=== PATIENT | female | born 1955 | race Asian ===

== ENCOUNTER 2023-11-29 15:06 | Emergency (ER) | payer MEDICARE, OTHER ==
[~2023-11-29] VITALS: Ht 157.5 cm; Wt 65.9 kg
[2023-11-29 15:10] VITALS: TEMP 98.4
[2023-11-29] MEDS ORDERED: METF-1211 PO (15:17)
[2023-11-29] MEDS ORDERED: TELM1TAB42 PO (15:17)
[2023-11-29] MEDS ORDERED: MAGN400T57 PO (15:17)
[2023-11-29] MEDS ORDERED: METO25XL PO (15:17)
[2023-11-29] MEDS ORDERED: EMPA10TA3 PO (15:17)
[2023-11-29] MEDS ORDERED: ASPI-1450 PO (15:17)
[2023-11-29] MEDS ORDERED: ATOR40TA28 PO (15:17)
[2023-11-29 15:46] LABS: BASOPHILS % (AUTO) 0.8 % (0.0-2.0); EOSINOPHILS % (AUTO) 0.8 % (1.0-6.0); HEMATOCRIT 41.6 % (36-46); HEMOGLOBIN 14.1 g/dL (12.0-16.0); LYMPHOCYTES # (AUTO) 2.4 K/uL (1.0-4.8); LYMPHOCYTES % (AUTO) 28.7 % (22.0-44.0); MEAN CORPUSCULAR HEMOGLOBIN 30.7 pg (26.0-34.0); MEAN CORPUSCULAR HGB CONC 33.8 G/dL (31.0-37.0); MEAN CORPUSCULAR VOLUME 91 fL (80-100); MONOCYTES # (AUTO) 0.6 K/uL (0.1-1.0); MONOCYTES % (AUTO) 6.9 % (2.0-9.0); NEUTROPHILS # (AUTO) 5.2 K/uL (1.8-7.7); NEUTROPHILS % (AUTO) 62.8 % (40.0-70.0); PLATELET COUNT (AUTO) 275 K/uL (150-450); RED BLOOD CELL COUNT(AUTO) 4.58 MIL/uL (4.00-5.20); RED CELL DISTRIBUTION WIDTH 13.8 % (11.5-14.5); WHITE BLOOD COUNT (AUTO) 8.3 K/uL (4.5-11.0)
[2023-11-29 15:54] LABS: CALCIUM, TOTAL 9.3 mg/dL (8.8-10.5); CREATININE 1.04 mg/dL (0.60-1.30); POTASSIUM 3.9 mmol/L (3.5-5.1)
[2023-11-29 16:00] LABS: ALBUMIN 4.3 g/dL (3.4-5.0); BILIRUBIN,TOTAL 1.1 mg/dL (0.1-1.0); TOTAL PROTEIN, SERUM 8.9 g/dL (6.4-8.2)
[2023-11-29 16:01] LABS: TROPONIN I-HIGH SENSITIVITY 6 ng/L (<51)
[2023-11-29 20:31] VITALS: BP 132/68; PULSE 78; RESP 20
== END 2023-11-29 20:32 | disposition home or self-care (01) ==
LOC: EMS 15:06
DX: R00.2 Palpitations (principal); I10 Essential (primary) hypertension; E87.1 Hypo-osmolality and hyponatremia; E11.9 Type 2 diabetes mellitus without complications; E78.00 Pure hypercholesterolemia, unspecified
CPT/HCPCS: 71045; 80053; 84484; 85025; 93005; 99285; 36415-L1; 36415-TC

== ENCOUNTER 2024-03-12 03:35 | Emergency (ER) | payer MEDICARE ==
[~2024-03-12] VITALS: Ht 157.5 cm; Wt 68.2 kg
[~2024-03-12 03:35] MED LIST: ASPI-1450 PO; ATOR40TA28 PO; EMPA10TA3 PO; MAGN400T57 PO; METF-1211 PO; METO25XL PO; TELM1TAB42 PO
[2024-03-12 03:40] VITALS: TEMP 98.6
[2024-03-12 04:14] VITALS: BP 147/82; PULSE 68; RESP 18
[2024-03-12 05:17] LABS: TROPONIN I-HIGH SENSITIVITY 4 ng/L (<51)
[2024-03-12 07:21] LABS: GLUCOMETER DEV NAME(LOC) ER.7; GLUCOSE,POINT OF CARE 98 MG/DL (70-110)
== END 2024-03-12 05:49 | disposition home or self-care (01) ==
LOC: EMS 03:36
DX: I10 Essential (primary) hypertension (principal); R00.2 Palpitations; E11.9 Type 2 diabetes mellitus without complications
CPT/HCPCS: 82962; 84484; 93005; 99284

== ENCOUNTER 2024-03-12 10:14 | Emergency (ER) | payer MEDICARE ==
[~2024-03-12] VITALS: Ht 162.6 cm; Wt 70.5 kg
[2024-03-12 11:25] LABS: BASOPHILS % (AUTO) 0.4 % (0.0-2.0); EOSINOPHILS % (AUTO) 0.7 % (1.0-6.0); HEMATOCRIT 40.2 % (36-46); HEMOGLOBIN 13.3 g/dL (12.0-16.0); LYMPHOCYTES % (AUTO) 26.9 % (22.0-44.0); MEAN CORPUSCULAR HEMOGLOBIN 30.2 pg (26.0-34.0); MEAN CORPUSCULAR HGB CONC 33.1 G/dL (31.0-37.0); MEAN CORPUSCULAR VOLUME 91 fL (80-100); MONOCYTES # (AUTO) 0.6 K/uL (0.1-1.0); MONOCYTES % (AUTO) 8.4 % (2.0-9.0); NEUTROPHILS # (AUTO) 4.7 K/uL (1.8-7.7); NEUTROPHILS % (AUTO) 63.6 % (40.0-70.0); PLATELET COUNT (AUTO) 282 K/uL (150-450); RED BLOOD CELL COUNT(AUTO) 4.41 MIL/uL (4.00-5.20); RED CELL DISTRIBUTION WIDTH 14.4 % (11.5-14.5); WHITE BLOOD COUNT (AUTO) 7.4 K/uL (4.5-11.0)
[2024-03-12 11:35] LABS: TROPONIN I-HIGH SENSITIVITY 6 ng/L (<51)
[2024-03-12 11:51] LABS: ALANINE AMINOTRANSFERASE 22 U/L (12-78); ALBUMIN 3.9 g/dL (3.4-5.0); ALKALINE PHOSPHATASE 92 U/L (46-116); ANION GAP 7 mmol/L (8-16); ASPARTATE AMINOTRANSFERASE 24 U/L (15-37); CALCIUM, TOTAL 8.8 mg/dL (8.8-10.5); CARBON DIOXIDE 29 mmol/L (22-29); CHLORIDE 84 mmol/L (98-107); CREATININE 0.87 mg/dL (0.60-1.30); GLOMERULAR FILTR. RATE CALC > 60 mL/min (>60); GLUCOSE,RANDOM 106 mg/dL (70-110); POTASSIUM 3.8 mmol/L (3.5-5.1); TOTAL PROTEIN, SERUM 8.2 g/dL (6.4-8.2); UREA NITROGEN, BLOOD 13 mg/dL (7-18)
[2024-03-12 12:01] LABS: SODIUM SERUM 120 mmol/L (136-145)
[2024-03-12 12:37] VITALS: TEMP 98.3
[2024-03-12] MEDS: SODIUM CHLORIDE 0.9% 500 ML IV ONE (12:46)
[2024-03-12 12:54] LABS: SODIUM,URINE RANDOM 20 mmol/l (20-110)
[2024-03-12 13:08] LABS: OSMOLALITY,URINE 205 mOsm/kg (50-1500)
[2024-03-12 14:14] VITALS: BP 131/65; PULSE 98; RESP 18
== END 2024-03-12 15:08 | disposition short-term general hospital (02) ==
LOC: EMS 10:14
DX: E87.1 Hypo-osmolality and hyponatremia (principal); R00.2 Palpitations; I10 Essential (primary) hypertension; R42 Dizziness and giddiness; E11.9 Type 2 diabetes mellitus without complications
CPT/HCPCS: 80053; 83930; 83935; 84300; 84484; 85025; 36415; 71045; 82962; 99285; 93005; 96360; J7030; J7040